=== PATIENT | male | born 1985 | race Caucasian/White ===

== ENCOUNTER 2017-08-26 16:39 | Emergency (ER) | payer SELFPAY ==
[2017-08-26] MEDS ORDERED: Ondansetron HCl/PF 4 MG/2 ML Vial ONE (17:46)
[2017-08-26] MEDS ORDERED: Ketorolac Tromethamine 30 MG/ML VIAL ONE (17:46)
== END 2017-08-26 18:50 | disposition home or self-care (01) ==
LOC: ERS 16:39
DX: B34.9 Viral infection, unspecified (principal); E86.0 Dehydration; F31.9 Bipolar disorder, unspecified; Z71.6 Tobacco abuse counseling; Z87.891 Personal history of nicotine dependence
CPT/HCPCS: 87804; 96361; 96374; 96375; 99406; J1885; J2405

== ENCOUNTER 2019-03-31 03:23 | Inpatient (IN) | payer OTHER, SELFPAY ==
[2019-03-31] MEDS ORDERED: Calcium Carbonate 500 MG ChewTAB PO PRN (04:15)
[2019-03-31] MEDS ORDERED: Ondansetron ODT 4 MG TAB PO PRN (04:15)
[2019-03-31] MEDS ORDERED: Ondansetron PF 4 MG/2 ML Vial IVP PRN (04:15)
[2019-03-31] MEDS ORDERED: Senokot S 8.6-50 MG TAB PO PRN (04:15)
[2019-03-31] MEDS: Sodium Chloride 0.9% 1,000 ML IV SCH ×5 (04:33→23:33)
[2019-03-31] MEDS: Pantoprazole 80 MG, Admixture Fee 1 EACH in Sodium Chloride 0.9% 100 ML IVP SCH ×2 (04:34→15:46)
[2019-03-31 05:23] LABS: Hemoglobin 9.5 g/dL (14.0-18.0)
[2019-03-31 08:33] LABS: #Monocytes 0.7 thou/uL (0.11-0.59); #Neutrophils 5.7 thou/uL (1.40-6.50); %Basophils 0.2 % (0.0-1.0); %Eosinophils 0.5 % (0.0-10.0); %Monocytes 7.8 % (0.0-10.0); %Neutrophils 67.5 % (42.0-75.0); Hemoglobin 9.1 g/dL (14.0-18.0); Mean Corpuscular HGB CONC 34.3 g/dL (32.0-36.0); Mean Corpuscular Hemoglobin 32.9 pg (27.0-31.0); Mean Platelet Volume 6.8 fL (7.4-10.4); Platelet Count 260 thou/uL (130-400); RBC Distribution Width 11.7 % (11.5-14.5); Red Blood Cell (RBC) Count 2.76 mill/uL (4.70-6.10); White Blood Cell (WBC) Count 8.4 thou/uL (4.8-10.8)
[2019-03-31 08:54] LABS: Iron 147 ug/dL (65-175); Iron Binding Capacity, Total 223 mcg/dL (261-462)
[2019-03-31 08:55] LABS: ALT (SGPT) 8 U/L (8-55); AST (SGOT) 10 U/L (5-34); Albumin 3.1 g/dL (3.5-5.0); Alkaline Phosphatase 34 U/L (40-150); Anion Gap 10 mmol/L (10-20); BUN (Urea Nitrogen) 20 mg/dL (8.9-20.6); Bilirubin, Total 0.5 mg/dL (0.2-1.2); Calc. Creatinine Clearance 162 mL/min (70-130); Calcium 7.7 mg/dL (7.8-10.44); Carbon Dioxide 23 mmol/L (22-29); Chloride 112 mmol/L (98-107); Estimated GFR-MDRD Greater than 90; Globulin 1.1 g/dL (2.4-3.5); Glucose 105 mg/dL (70-105); Iron 147 ug/dL (65-175); Iron Binding Capacity, Total 226 mcg/dL (261-462); Protein, Total 4.2 g/dL (6.0-8.3); Sodium 141 mmol/L (136-145)
--- NOTE | 2019-03-31 09:40 | PDOC.HOSPP ---
- Subjective Encounter Date: 03/31/19 Encounter Time: 09:15 Subjective: Patient examined, denied new complaints. Reports no vomiting since admitted, denied diarrhea. - Objective Vital Signs & Weight: Vital Signs (12 hours) Temp Pulse Resp BP BP BP BP 03/31/19 08:00 138/77 128/74 119/57 L 03/31/19 07:29 98.5 F 70 16 138/77 128/74 119/57 L 03/31/19 03:31 98.5 F 77 18 116/68 Pulse Ox 03/31/19 08:00 03/31/19 07:29 97 03/31/19 03:31 98 Weight Admit Weight 88.36 kg Weight 88.36 kg I&O: 03/30/19 03/31/19 04/01/19 06:59 06:59 06:59 Intake Total 174 Balance 174 Result Diagrams: 03/31/19 08:21 03/31/19 08:21 ROS - Review of Systems Gastrointestinal: reports: nausea, vomitting, abdominal pain, melena, hematochezia - Medication Medications: Active Medications Generic Name Dose Route Start Last Admin Trade Name Freq PRN Reason Stop Dose Admin Sodium Chloride 1,000 mls @ 150 mls/hr 03/31/19 04:15 03/31/19 04:33 Normal Saline 0.9% IV 1,000 mls .Q6H40M KALINA Administration Pantoprazole Sodium 80 mg/ 100 mls @ 10 mls/hr 03/31/19 04:30 03/31/19 04:34 Miscellaneous Medication 1 IVP 100 mls each/ Sodium Chloride INF KALINA Administration - Exam Eye: PERRL ENT: dry oral mucosa Neck: supple Heart: RRR Respiratory: CTAB Gastrointestinal: soft, normal bowel sounds, tender to palpation Gastrointestinal - other findings: diffuse tenderness Extremities: no edema Skin: normal turgor Neurological: CN's grossly intact Musculoskeletal: normal tone Psychiatric: normal affect, A&O x 3 Hosp A/P (1) Hematemesis Code(s): K92.0 - HEMATEMESIS Status: Acute (2) Hematochezia Code(s): K92.1 - MELENA Status: Acute (3) Melena Code(s): K92.1 - MELENA Status: Acute (4) Abdominal pain Code(s): R10.9 - UNSPECIFIED ABDOMINAL PAIN Status: Acute Qualifiers: Abdominal location: generalized Qualified Code(s): R10.84 - Generalized abdominal pain - Plan old records reviewed/req Consult for GI placed, Dr. Ann will take to OR for EGD Will recheck H&H Will continue to monitor Patient currently NPO
[2019-03-31 10:52] LABS: Hemoglobin 8.9 g/dL (14.0-18.0)
--- NOTE | 2019-03-31 11:10 | CON ---
DATE OF CONSULTATION: 03/31/2019 CHIEF COMPLAINT: Vomited blood. HISTORY OF PRESENT ILLNESS: Mr. 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 He suddenly developed profuse sweating and then vomited coffee-ground material multiple times. He had repeated episodes of coffee-ground emesis and then, red hematemesis following that. He then went to a [facility] and vomited red blood and clots filling up 2 emesis bags. He felt very weak and presyncopal at that point. An ambulance was called and he was taken to the [facility] ER. He was monitored in the emergency room for several hours after that and continued vomiting red blood and then some more coffee-grounds. He passed a couple of black tar like stools. He felt very weak. He was told he was dehydrated and was given some IV fluids and ultimately, discharged home with prescription for Zofran and Prilosec. He went back home and passed another black tarry stool. He vomited some more coffee-grounds and then went back to the [facility] Emergency Room. He sat in the emergency room waiting room for a couple of hours and then he felt very sick and weak and he then went on to the [facility] Emergency Room and from there, he was directly admitted to [facility]. He was given IV fluids and started on proton pump inhibitor drip. He has had some epigastric abdominal pain, sharp pain that does not radiate, on and off over the last couple of years. He did go to the emergency room once a couple of years ago with the pain and he was given a prescription for Nexium. He took the Nexium for a couple months and his pain went away. Since then, he has had some pain on and off around once per month, for which he takes Zantac as needed. He really has had no problems over the last couple of months until he started vomiting the blood yesterday. He has had no weight changes. No chest pain or shortness of breath. No fever or chills. He has had three black stools. His last melenic stool was last night around 10 p.m. PAST MEDICAL HISTORY: Otherwise negative. PAST SURGICAL HISTORY: Negative. FAMILY HISTORY: His father had bladder cancer. He had a great grandfather with colon cancer. SOCIAL HISTORY: He drank alcohol heavily from age 15 to age 25. He took multiple drugs during that time including IV drugs and methamphetamines and cocaine and pills including opioids and benzodiazepines. [facility] ultimately [facility] and since then, he has been off all alcohol and drugs. ALLERGIES: NO KNOWN DRUG ALLERGIES. MEDICATIONS: Prior to admission some occasional Zantac. REVIEW OF SYSTEMS: Negative x10 systems reviewed except as stated in the history of present illness. PHYSICAL EXAMINATION: VITAL SIGNS: Temperature 98.5, pulse 70, and blood pressure 119/57. GENERAL: He is in no acute distress. Alert and oriented x3. HEENT: Eyes have no scleral icterus. Oropharynx is clear without lesions. No cervical or supraclavicular lymphadenopathy. LUNGS: Clear to auscultation bilaterally. HEART: Regular rate and rhythm without murmur. ABDOMEN: Soft, nontender, and nondistended. Bowel sounds are present. EXTREMITIES: No lower extremity edema. LABORATORY DATA: White blood cell count 8.4, hemoglobin 9.1 at 8:20 this morning, MCV 96, and platelets 260. Creatinine 0.81. Iron 147, TIBC 223, percent saturation 66, and ferritin 43. Bilirubin 0.5, AST 10, ALT 8, alkaline phosphatase 34, and albumin 3.1. IMPRESSION: 1. Hematemesis. 2. Anemia of acute blood loss. 3. Periodic epigastric pain suggestive of peptic ulcer. 4. He has a past history of polysubstance abuse several years ago. He has been off alcohol and drugs for several years now. He has been donating plasma and presumably therefore has been tested for viral hepatitis and HIV. RECOMMENDATIONS: 1. Proton pump inhibitor drip. 2. EGD today. 3. I will check hepatitis serology and given the elevated iron saturation, I will also check an HIV gene for hemochromatosis screening. Job ID: [id number]
[2019-03-31 11:37] LABS: HBSAg Index 0.19 S/CO (0-0.99); Hep B Core Total Ab Non-Reactive (NonReactive); Hep B Core Total Index 0.03 S/CO (0-0.79); Hep B Surf Ag Non-Reactive S/CO (NonReactive); Hep C IgG Ab Non-Reactive (NonReactive); Hep C Index 0.11 S/CO (0-0.79)
[2019-03-31 12:45] LABS: HBSAB Concentration 6.69 mIU/mL; Hep B Surf AB NonReactive (NonReactive)
[2019-03-31] MEDS ORDERED: Promethazine HCl 25 MG/ML VIAL SLOW IVP PRN (15:06)
[2019-03-31] MEDS ORDERED: Promethazine HCl 25 MG/ML VIAL IM PRN (15:06)
[2019-03-31] MEDS ORDERED: Ondansetron HCl/PF 4 MG/2 ML Vial IVP PRN (15:06)
[2019-03-31] MEDS ORDERED: PROPOFOL 200 MG/20 ML VIAL ONE (16:11)
--- NOTE | 2019-03-31 17:00 | OP ---
DATE OF PROCEDURE: 03/31/2019 PROCEDURE PERFORMED: Esophagogastroduodenoscopy with control of hemorrhage and biopsy. PREOPERATIVE DIAGNOSES: Upper gastrointestinal bleed and anemia of acute blood loss. DESCRIPTION OF PROCEDURE: Informed consent was obtained from the patient. He was sedated with total intravenous anesthesia. The bite block was placed, and the endoscope was advanced easily to the second portion of the duodenum. The esophagus had mild grade A erosive esophagitis in the distal esophagus. The esophagus was otherwise normal. The stomach had erythematous antral gastritis. Biopsies were taken to rule out Helicobacter pylori. The remainder of the gastric mucosa including retroflexed views were normal. There was a 1 cm shallow ulcer on the inferior portion of the first portion of the duodenum with an adherent clot that appears to be the obvious bleeding source. Epinephrine 1:10,000 was injected in three quadrants, 1 mL per quadrant around the ulcer. The clot in the center was then dislodged with a Gold probe and the underlying vessel was cauterized with the 10-Telugu Gold probe with good hemostasis achieved. A hemoclip was placed over the ulcer base as well. There was a small red superficial red spot or AVM in the lateral wall of the duodenal bulb and this was also cauterized with the Gold probe. The second portion of the duodenum was normal. IMPRESSION: 1. A 1 cm shallow ulcer on the inferior part of the first portion of the duodenum with an adherent clot, which was the obvious bleeding source. This was injected with epinephrine and then cauterized with a 10-Telugu Gold probe with good hemostasis confirmed. A hemoclip was placed over the ulcer base as well. 2. A superficial red spot or arteriovenous malformation in the lateral wall of the first portion of the duodenum was also cauterized. 3. Grade A erosive esophagitis. 4. Erythematous antral gastritis. Biopsies were obtained to rule out Helicobacter pylori. RECOMMENDATIONS: 1. Await histopathology. 2. Continue proton pump inhibitor IV. 3. Advance diet as tolerated. We will start with full liquids today. 4. Follow trend of the hemoglobin. I think that he did have a significant bleed and he is still re-equilibrating his hemoglobin. I would not be surprised if his hemoglobin dropped by another couple of points tomorrow as he is rehydrated. Job ID: [id number]
[2019-03-31] MEDS: Acetaminophen 325 MG TAB PO PRN (18:44)
[2019-04-01 00:02] LABS: Hemoglobin 8.1 g/dL (14.0-18.0)
[2019-04-01] MEDS: Pantoprazole 80 MG, Admixture Fee 1 EACH in Sodium Chloride 0.9% 100 ML IVP SCH ×2 (01:38→12:19)
[2019-04-01 05:58] LABS: #Eosinphils 0.1 thou/uL (0.0-0.7); #Lymphocytes 2.1 thou/uL (1.20-3.40); #Monocytes 0.4 thou/uL (0.11-0.59); #Neutrophils 4.4 thou/uL (1.40-6.50); %Basophils 0.4 % (0.0-1.0); %Eosinophils 1.5 % (0.0-10.0); %Lymphocytes 29.6 % (21.0-51.0); %Neutrophils 62.5 % (42.0-75.0); Hemoglobin 8.3 g/dL (14.0-18.0); Mean Corpuscular HGB CONC 33.8 g/dL (32.0-36.0); Mean Corpuscular Hemoglobin 32.9 pg (27.0-31.0); Mean Corpuscular Volume 97.4 fL (78.0-98.0); Mean Platelet Volume 6.7 fL (7.4-10.4); Platelet Count 244 thou/uL (130-400); RBC Distribution Width 11.8 % (11.5-14.5); Red Blood Cell (RBC) Count 2.53 mill/uL (4.70-6.10)
[2019-04-01] MEDS: Sodium Chloride 0.9% 1,000 ML IV SCH ×3 (06:12→20:14)
[2019-04-01 06:27] LABS: Anion Gap 7 mmol/L (10-20); BUN (Urea Nitrogen) 9 mg/dL (8.9-20.6); Calc. Creatinine Clearance 125 mL/min (70-130); Calcium 7.4 mg/dL (7.8-10.44); Carbon Dioxide 22 mmol/L (22-29); Chloride 110 mmol/L (98-107); Estimated GFR-MDRD Greater than 90; Glucose 94 mg/dL (70-105); Potassium 3.7 mmol/L (3.5-5.1); Sodium 135 mmol/L (136-145)
[2019-04-01] MEDS: Acetaminophen 325 MG TAB PO PRN (11:10)
--- NOTE | 2019-04-01 13:44 | PRG ---
DATE OF SERVICE: 04/01/2019 SUBJECTIVE: Mr. Domingo passed some dark stool still last night. He has no abdominal pain. No further nausea. OBJECTIVE: VITAL SIGNS: Temperature 97.9, pulse 81, blood pressure 113/56. GENERAL: He is in no acute distress. Alert and oriented x3. LUNGS: Clear to auscultation bilaterally. HEART: Regular rate and rhythm without murmur. ABDOMEN: Soft, nontender, nondistended. Bowel sounds are present. EXTREMITIES: No lower extremity edema. LABORATORY DATA: Hemoglobin is 8.3. Viral hepatitis screen is negative. His ferritin is 43. IMPRESSION: 1. Acute gastrointestinal bleed secondary to duodenal ulcer, status post electrocautery and clipping of a vessel in the base of the ulcer. 2. Anemia secondary to acute blood loss. 3. Elevated iron saturation. RECOMMENDATIONS: 1. He should be able to stop the proton-pump inhibitor drip tomorrow and discharge home tomorrow. 2. He should take proton-pump inhibitor twice daily for 2 weeks and then back off to once daily. 3. Remained on the proton pump inhibitor indefinitely at this point. 4. Await histopathology to rule out Helicobacter pylori. 5. He is still passing some old blood, but he is not having any active bleeding. We still might see some equilibration of hemoglobin, but this appears to have stabilized. Anticipate that he will discharge home tomorrow. Job ID: [id number]
--- NOTE | 2019-04-01 15:07 | PDOC.HOSPP ---
- Subjective Encounter Date: 04/01/19 Encounter Time: 10:00 Subjective: Patient examined, reports passing dark blood tinged stool last night, denied any bright red blood, denies abdominal pain - Objective Vital Signs & Weight: Vital Signs (12 hours) Temp Pulse Resp BP BP Pulse Ox 04/01/19 13:12 97.9 F 81 16 113/56 L 99 04/01/19 07:37 97.6 F 75 16 121/69 98 04/01/19 04:41 98.7 F 80 18 109/61 97 Weight Admit Weight 88.36 kg Weight 62.959 kg I&O: 03/31/19 04/01/19 04/02/19 06:59 06:59 06:59 Intake Total 174 3820 Balance 174 3820 Result Diagrams: 04/01/19 05:48 04/01/19 05:48 ROS - Review of Systems Gastrointestinal: reports: melena - Medication Medications: Active Medications Generic Name Dose Route Start Last Admin Trade Name Freq PRN Reason Stop Dose Admin Acetaminophen 650 mg 03/31/19 04:15 04/01/19 11:10 Tylenol PO 650 mg Q4H PRN Administration Headache/Fever/Mild Pain (1-3) Sodium Chloride 1,000 mls @ 150 mls/hr 03/31/19 04:15 04/01/19 12:19 Normal Saline 0.9% IV 1,000 mls .Q6H40M KALINA Administration Pantoprazole Sodium 80 mg/ 100 mls @ 10 mls/hr 03/31/19 04:30 04/01/19 12:19 Miscellaneous Medication 1 IVP 100 mls each/ Sodium Chloride INF KALINA Administration - Exam Eye: PERRL, anicteric sclera ENT: moist mucosa Neck: supple, no JVD Heart: RRR Respiratory: CTAB Gastrointestinal: soft, non-tender, normal bowel sounds Extremities: no cyanosis Skin: normal turgor Neurological: CN's grossly intact Musculoskeletal: normal tone, normal strength Psychiatric: normal affect, A&O x 3 Hosp A/P (1) Hematemesis Code(s): K92.0 - HEMATEMESIS Status: Resolved (2) Hematochezia Code(s): K92.1 - MELENA Status: Acute (3) Abdominal pain Code(s): R10.9 - UNSPECIFIED ABDOMINAL PAIN Status: Resolved Qualifiers: Abdominal location: generalized Qualified Code(s): R10.84 - Generalized abdominal pain - Plan EDG yesterday, feels better today, passed dark stool last night Has tolerated increase to diet, had some cream of wheat this morning, will continue to increase as tolerated. Educated patient on keeping diet bland Will keep on IV protonix overnight Will recheck CBC in AM; serial H&Hs have been stable Will continue to monitor Plan to DC tomorrow if continues to improve, tolerate PO once cleared by GI
--- NOTE | 2019-04-01 18:43 | PDOC.EVN ---
Event Note - Event Note Event Note: KELVIN Rondon reports patient had a BM just now with melena and small amount of bright red blood. H&H ordered, and will check CBC in AM.
[2019-04-01 19:01] LABS: Hemoglobin 8.2 g/dL (14.0-18.0)
[2019-04-02] MEDS: Sodium Chloride 0.9% 1,000 ML IV SCH ×2 (01:11→06:40)
[2019-04-02 03:35] VITALS: BMI 17.8
--- NOTE | 2019-04-02 07:18 | HP ---
PRIMARY CARE PHYSICIAN: [facility]. CHIEF COMPLAINT: Coffee-ground emesis with dark stool of one day duration. HISTORY OF PRESENT ILLNESS: The patient is a 33-year-old male, who was transferred from [facility] emergency room with above complaints. Over the last 24 hours, the patient started having nausea with coffee-ground emesis along with several dark bowel movements. He deny any abdominal pain. He uses NSAIDs occasionally. He also had small amount of blood in his vomitus and stool. He denies current anticoagulation use. No recent travel, fever, chills, chest pain, lightheadedness, or syncope reported. In the [facility] emergency room, his initial vital signs showed blood pressure of 120/71, temperature 98.5, heart rate of 75 with respirations of 16, and O2 saturation 96% on room air. His H and H were around 11. Please note that he was evaluated at [facility] emergency room yesterday and was discharged home with outpatient GI followup. His H and H at [facility] was 11.7. PAST MEDICAL HISTORY: 1. Peptic ulcer disease. 2. GERD. PAST SURGICAL HISTORY: Reviewed with the patient and none. ALLERGIES: NO KNOWN DRUG ALLERGIES. CURRENT HOME MEDICATIONS: Reviewed with the patient and none. SOCIAL HISTORY: The patient currently lives at home. Denies any tobacco, alcohol, or drug use. FAMILY HISTORY: Negative for GI malignancy. REVIEW OF SYSTEMS: All other review of systems was reviewed and was found negative. PHYSICAL EXAMINATION: VITAL SIGNS: As discussed above. GENERAL: A 33-year-old male in no apparent distress. HEENT: Head, atraumatic and normocephalic. Sclerae anicteric. Moist mucous membranes. No oral lesion. NECK: Supple. No JVD. No carotid bruit. LUNGS: Clear to auscultation bilaterally. No wheezing, rales, or rhonchi. HEART: S1 and S2 present. Regular rate and rhythm. No rubs or gallops. ABDOMEN: Soft, nontender. Bowel sounds present. No rebound or guarding. No costovertebral angle tenderness. EXTREMITIES: No edema or calf tenderness. NEUROLOGIC: Grossly nonfocal. Moves all 4 extremities. PSYCHIATRY: Alert, awake, and oriented x3. SKIN: Warm and dry. LYMPH NODES: No palpable lymph nodes in the neck. PERIPHERAL VASCULAR: Radial pulses palpable bilaterally. MUSCULOSKELETAL: No joint swelling or tenderness. LABORATORY FINDINGS: PT/INR in normal range. Troponin was negative. CBC showed WBC 16.7 with hemoglobin 11, hematocrit 32.4, and platelet 338. Repeat hemoglobin at this facility is 9.5. Chemistry showed sodium 141, potassium 4.3, chloride 106, bicarb of 23, BUN 26, creatinine 1, and glucose of 128. DIAGNOSTIC STUDIES: EKG from [facility] showed sinus rhythm. IMPRESSION: 1. Gastrointestinal bleeding. 2. Acute blood loss anemia. 3. Gastroesophageal reflux disease with history of peptic ulcer disease. PLAN: The patient will be monitored on the telemetry unit. We will check orthostatic vitals daily. IV hydration. Protonix drip. Consult Gastroenterology. Repeat H and H later today. N.p.o. A.m. labs. Plan of care was discussed with the patient, and the patient stated understanding. Job ID: [id number]
[2019-04-02] MEDS: Pantoprazole 80 MG, Admixture Fee 1 EACH in Sodium Chloride 0.9% 100 ML IVP SCH ×2 (07:40→17:31)
--- NOTE | 2019-04-02 10:57 | PDOC.HOSPP ---
- Subjective Encounter Date: 04/02/19 Encounter Time: 10:56 Subjective: Patient lying in bed, he reports feeling mild epigastric pain better with meals , he also reports fatigue and generalized weakness. Hgb remains stable, but still reporting blood tinged stool. He denies chest pain, shortness of breath. - Objective Vital Signs & Weight: Vital Signs (12 hours) Temp Pulse Resp BP Pulse Ox 04/02/19 07:19 98.6 F 75 15 114/64 98 04/02/19 03:30 98.7 F 71 16 119/70 97 04/01/19 23:20 98.8 F 82 16 138/62 97 Weight Admit Weight 194 lb 12.8 oz Weight 138 lb 12.8 oz I&O: 04/01/19 04/02/19 04/03/19 06:59 06:59 06:59 Intake Total 3820 6050 Balance 3820 6050 Result Diagrams: 04/01/19 18:54 04/01/19 05:48 Radiology Reviewed by me: Yes ROS - Review of Systems Constitutional: reports: weakness. denies: fever, chills Eyes: denies: pain, vision change, conjunctivae inflammation ENT: denies: ear pain, nose congestion, mouth pain, throat pain Respiratory: denies: cough, shortness of breath, wheezing Cardiovascular: denies: chest pain, palpitations, light headedness Gastrointestinal: reports: nausea, abdominal pain, melena. denies: vomitting, diarrhea, constipation Musculoskeletal: denies: neck pain, shoulder pain, back pain Skin: denies: rash, lesions, bruising Neurological: denies: numbness, change in speech, confusion All other systems reviewed; all pertinent +/- noted in HPI/Subj - Medication Medications: Active Medications Generic Name Dose Route Start Last Admin Trade Name Freq PRN Reason Stop Dose Admin Acetaminophen 650 mg 03/31/19 04:15 04/01/19 11:10 Tylenol PO 650 mg Q4H PRN Administration Headache/Fever/Mild Pain (1-3) Sodium Chloride 1,000 mls @ 150 mls/hr 03/31/19 04:15 04/02/19 06:40 Normal Saline 0.9% IV 1,000 mls .Q6H40M KALINA Administration Pantoprazole Sodium 80 mg/ 100 mls @ 10 mls/hr 03/31/19 04:30 04/02/19 07:40 Miscellaneous Medication 1 IVP 100 mls each/ Sodium Chloride INF KALINA Administration - Exam NAD, awake alert Eye: PERRL, anicteric sclera ENT: normocephalic atraumatic, moist mucosa Neck: supple, symmetric, no JVD Heart: RRR, no murmur Respiratory: CTAB, no wheezes Gastrointestinal: soft, non-distended, normal bowel sounds Extremities: no cyanosis, no clubbing Skin: normal turgor Neurological: CN's grossly intact, normal sensation to touch, no focal deficits Musculoskeletal: normal tone, normal strength Psychiatric: normal affect, normal behavior, A&O x 3 Hosp A/P (1) Duodenal ulcer Status: Acute (2) Hematochezia Code(s): K92.1 - MELENA Status: Acute (3) Melena Code(s): K92.1 - MELENA Status: Acute (4) Abdominal pain Code(s): R10.9 - UNSPECIFIED ABDOMINAL PAIN Status: Resolved Qualifiers: Abdominal location: generalized Qualified Code(s): R10.84 - Generalized abdominal pain (5) Hematemesis Code(s): K92.0 - HEMATEMESIS Status: Resolved - Plan old records reviewed/req, plan discussed w/ family Await H pylori Recheck CBC in morning and transfuse as needed Continue protonix drip per Dr Seth Ann following along and we appreciate recommendations Hold discharge and transition to inpatient as patient will need to be monitored for at least one more day due to continued melena
--- NOTE | 2019-04-02 13:43 | PRG ---
DATE OF SERVICE: 04/02/2019 SUBJECTIVE: Mr. Domingo passed one black stool with red blood last night. He has no abdominal pain. No nausea or vomiting. PHYSICAL EXAMINATION: VITAL SIGNS: Temperature is 98.2, pulse 67, blood pressure 127/67. GENERAL: He is in no acute distress. Alert and oriented x3. LUNGS: Clear to auscultation bilaterally. HEART: Regular rate and rhythm without murmur. ABDOMEN: Soft, nontender, nondistended. Bowel sounds are present. EXTREMITIES: No lower extremity edema. LABORATORY DATA: His hemoglobin last night after the bleeding episode was 8.2, hemoglobin yesterday morning was 8.3. IMPRESSION: 1. Acute gastrointestinal bleed secondary to duodenal ulcer, status post electrocautery and clip. 2. Anemia of acute blood loss. 3. He did pass blood last night, which most likely is still passing old blood from the original bleed. I doubt he has had further bleeding since the procedure. RECOMMENDATIONS: 1. Recheck his hemoglobin in the morning. As long as it is stable, he can discharge home. 2. I would continue the proton pump inhibitor drip until then, and then, he can discharge home on proton pump inhibitor twice daily by mouth for 2 weeks and then cut back to once daily. 3. Await histopathology and treat H. pylori if positive. 4. Follow up in GI Clinic in a month. Job ID: [id number]
[2019-04-02] MEDS ORDERED: Polyethylene Glycol 3350 17 GM Packet PO PRN (23:43)
[2019-04-03] MEDS: Pantoprazole 80 MG, Admixture Fee 1 EACH in Sodium Chloride 0.9% 100 ML IVP SCH ×2 (03:45→16:49)
[2019-04-03 05:43] LABS: #Eosinphils 0.2 thou/uL (0.0-0.7); #Lymphocytes 2.2 thou/uL (1.20-3.40); #Monocytes 0.9 thou/uL (0.11-0.59); #Neutrophils 6.3 thou/uL (1.40-6.50); %Basophils 0.3 % (0.0-1.0); %Eosinophils 1.7 % (0.0-10.0); %Monocytes 9.4 % (0.0-10.0); %Neutrophils 65.6 % (42.0-75.0); Hemoglobin 7.9 g/dL (14.0-18.0); Mean Corpuscular Hemoglobin 33.1 pg (27.0-31.0); Mean Corpuscular Volume 94.4 fL (78.0-98.0); Mean Platelet Volume 6.9 fL (7.4-10.4); Platelet Count 316 thou/uL (130-400); RBC Distribution Width 11.9 % (11.5-14.5); Red Blood Cell (RBC) Count 2.39 mill/uL (4.70-6.10); White Blood Cell (WBC) Count 9.5 thou/uL (4.8-10.8)
[2019-04-03] MEDS: Acetaminophen 325 MG TAB PO PRN (09:05)
[2019-04-03] MEDS ORDERED: Magnesium Citrate 300 ML BOT PO SCH (10:30)
[2019-04-03 13:10] LABS: Hemoglobin 8.7 g/dL (14.0-18.0)
[2019-04-03] MEDS ORDERED: traMADol HCl 50 MG TAB PO PRN (15:09)
--- NOTE | 2019-04-03 15:20 | PDOC.HOSPP ---
- Subjective Encounter Date: 04/03/19 Encounter Time: 15:18 Subjective: Pt seen for followup re: H. pylori chronic active gastritis. c/o abdo pain, constipation. Vomited after drinking mag citrate. Feels weak. - Objective Vital Signs & Weight: Vital Signs (12 hours) Temp Pulse Resp BP BP BP Pulse Ox 04/03/19 11:15 97.8 F 77 20 137/82 98 04/03/19 08:50 73 L 04/03/19 08:00 98.1 F 73 18 129/73 123/77 131/80 99 04/03/19 04:00 98.2 F 76 16 131/75 96 Weight Admit Weight 194 lb 12.8 oz Weight 138 lb 12.8 oz I&O: 04/02/19 04/03/19 04/04/19 06:59 06:59 06:59 Intake Total 6050 480 Balance 6050 480 Result Diagrams: 04/03/19 12:59 04/01/19 05:48 Additional Labs: Labs and MARs reviewed by ROS - Review of Systems Cardiovascular: denies: chest pain, palpitations, orthopnea, paroxysmal noc. dyspnea, edema, light headedness Gastrointestinal: reports: nausea, vomitting, abdominal pain, constipation. denies: diarrhea, melena, hematochezia - Medication Medications: Active Medications Generic Name Dose Route Start Last Admin Trade Name Freq PRN Reason Stop Dose Admin Acetaminophen 650 mg 03/31/19 04:15 04/03/19 09:05 Tylenol PO 650 mg Q4H PRN Administration Headache/Fever/Mild Pain (1-3) Pantoprazole Sodium 80 mg/ 100 mls @ 10 mls/hr 03/31/19 04:30 04/03/19 03:45 Miscellaneous Medication 1 IVP 100 mls each/ Sodium Chloride INF KALINA Administration Ondansetron HCl 4 mg 03/31/19 04:15 04/03/19 12:03 Zofran IVP 4 mg Q6H PRN Administration Nausea/Vomiting Polyethylene Glycol 17 gm 04/02/19 23:43 04/02/19 23:52 Miralax PO 17 gm DAILYPRN PRN Administration Constipation Senna/Docusate Sodium 2 tab 03/31/19 04:15 04/02/19 23:52 Senokot S PO 2 tab BIDPRN PRN Administration Constipation - Exam NAD Eye: anicteric sclera ENT: normocephalic atraumatic Neck: supple Heart: RRR Respiratory: CTAB Gastrointestinal: soft, normal bowel sounds Gastrointestinal - other findings: Mild epigastric tenderness Extremities: no cyanosis Psychiatric: normal affect, normal behavior Hosp A/P (1) Duodenal ulcer Status: Acute (2) Chronic Helicobacter pylori gastritis Code(s): K29.50 - UNSPECIFIED CHRONIC GASTRITIS WITHOUT BLEEDING; B96.81 - HELICOBACTER PYLORI THE CAUSE OF DISEASES CLASSD ELSWHR Status: Acute - Plan plan discussed w/ family, out of bed/ambulate Continue Porotonix drip. Discussed with GI. At time of discharge start quadruple therepy: Pantoprazole 40 mg BID, doxycycline 100 mg BID, Peptobismol 524 mg QID (two of 262 mg tablets QID) and metronidazole 250 mg QID and BID iron. Hemoglobin stable, trended up to 8.5 on repeat check.
--- NOTE | 2019-04-03 15:46 | RAD ---
EXAM: XR Abdomen 2 View PROVIDED CLINICAL HISTORY: Abdominal pain COMPARISON: None FINDINGS: There is a metallic density overlying the right lower abdomen/right upper pelvis suggesting a metalli c foreign body, but the exact etiology is uncertain. Bowel gas pattern is nonspecific. No suspicious calcifications are appreciated, but the renal shadows are mostly obscured by bowel gas. Th e osseous structures have a normal appearance. IMPRESSION: 1. Metallic density overlying the right lower quadrant/right upper pelvis. Clinical correlation for m etallic foreign body in this region is recommended. 2. Nonspecific bowel gas pattern.
--- NOTE | 2019-04-03 19:17 | PRG ---
DATE OF SERVICE: 04/03/2019 SUBJECTIVE: Mr. Domingo has no abdominal pain. He has been tolerating a solid diet well. His last bowel movement was yesterday. He states that he got nervous because he did not have a bowel movement today after eating, and he usually has a bowel movement after meals. He asked for a laxative, and he took magnesium citrate and then vomited some magnesium citrate and vomited immediately after that. He has had no further vomiting. OBJECTIVE: ABDOMEN: Soft, nontender, and nondistended. Bowel sounds are present. EXTREMITIES: No lower extremity edema. IMPRESSION: 1. Anemia of acute blood loss. His hemoglobin has improved today to 8.7. 2. Gastrointestinal bleed secondary to duodenal ulcer, resolved. He is still passing some old blood from his colon. There are no signs of ongoing active bleeding at this point. His hemoglobin is stable. 3. Helicobacter pylori infection. He should be treated with quadruple therapy for 14 days. He can be discharged on bismuth 524 mg 4 times daily, doxycycline 100 mg twice daily, pantoprazole 40 mg twice daily (or other PPI), and metronidazole 250 mg 4 times daily. They should all be given for 14 days. 4. The patient can be discharged home this evening or tomorrow morning. I will sign off. Please call if GI can be of assistance. Job ID: [id number] MTDD
--- NOTE | 2019-04-03 19:31 | PDOC.EVN ---
Event Note - Event Note Event Note: Reassessed patient. Updated him re: abdo x-ray result. Discussed discharge plan. Pt reports he is still constipated, worried about going home tonight. Will make arrangements to be picked up tomorrow. Pt to be discharged tomorrow.
[2019-04-03] MEDS: traMADol HCl 50 MG TAB PO PRN (20:48)
[2019-04-04 05:04] LABS: #Eosinphils 0.2 thou/uL (0.0-0.7); #Lymphocytes 1.9 thou/uL (1.20-3.40); #Neutrophils 7.7 thou/uL (1.40-6.50); %Basophils 0.4 % (0.0-1.0); %Eosinophils 1.5 % (0.0-10.0); %Lymphocytes 17.8 % (21.0-51.0); %Monocytes 8.9 % (0.0-10.0); %Neutrophils 71.3 % (42.0-75.0); Mean Corpuscular HGB CONC 34.5 g/dL (32.0-36.0); Mean Corpuscular Volume 95.6 fL (78.0-98.0); Mean Platelet Volume 6.7 fL (7.4-10.4); Platelet Count 363 thou/uL (130-400); RBC Distribution Width 12.3 % (11.5-14.5); Red Blood Cell (RBC) Count 2.42 mill/uL (4.70-6.10); White Blood Cell (WBC) Count 10.8 thou/uL (4.8-10.8)
[2019-04-04] MEDS: traMADol HCl 50 MG TAB PO PRN (05:50)
[2019-04-04 15:31] VITALS: BP 135/78; TEMP 98.1
--- NOTE | 2019-04-04 17:39 | DIS ---
DATE OF ADMISSION: 03/31/2019 DATE OF DISCHARGE: 04/04/2019 DISCHARGE DISPOSITION: Home. PRIMARY DISCHARGE DIAGNOSES: Acute blood loss anemia with GI bleed, 1 cm duodenal ulcer, H pylori, and chronic active gastritis. PROCEDURES DONE DURING HOSPITALIZATION: The patient has had upper endoscopy done by Dr. Bhaskar Ann on 03/31/2019, which showed 1 cm shallow ulcer on the inferior part of the first portion of duodenum with an adherent clot, which was the obvious source of bleeding. This was injected with epinephrine and then cauterized with a 10-Honduran gold probe with good hemostasis. A hemoclip was also placed over the ulcer base. 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 Grade A erosive esophagitis was seen. Erythematous antral gastritis, which was biopsied, histopathology of gastric endoscopic biopsy showed H pylori, chronic active gastritis. Discharge H and H of 8 and 23, MCV is 95, platelet count 363. Albumin is 3.1. Serum iron 147, TIBC 223, percent saturation 66, ferritin is 43. Hepatitis profile was negative. Hemochromatosis genetic screen showed no mutation. INPATIENT CONSULT: Dr. Bhaskar Ann for Gastroenterology. DISCHARGE MEDICATIONS: Bismuth 524 mg p.o. 4 times daily for 2 weeks, doxycycline 100 mg p.o. twice daily for 2 weeks, ferrous sulfate 325 mg p.o. daily, Flagyl 250 mg p.o. 4 times daily for 2 weeks, and Protonix 40 mg p.o. twice daily for 2 weeks. ALLERGIES: NO KNOWN DRUG ALLERGIES. DISCHARGE PLAN: The patient to follow up with primary care physician in [address] Bhaskar Ann as advised BRIEF COURSE DURING HOSPITALIZATION: The patient initially got admitted on the with complaints of coffee-ground emesis. His initial hemoglobin was 11. He has had upper endoscopy done by Dr. Bhaskar Ann. This showed duodenal ulcer as described above, which was cauterized. The patient has had slow and gentle recovery. His histopathology from gastric biopsy came back positive for H pylori. At the time of discharge, he was placed on quadruple therapy for 2 weeks. He has had slow and gentle recovery. He is tolerating oral solid diet prior to discharge. His H and H have remained stable around 8 and 24. He needs to follow up with Dr. Bhaskar Ann as advised and primary care physician in 1 week. Please note, I have seen and examined the patient on the day of discharge. Job ID: [id number]
== END 2019-04-04 20:41 | disposition home or self-care (01) | DRG 378 ==
LOC: OBSVTOIN 03:23 → 2SW 03:23 → INTOOBSV 03:23 → SURG B 04-02 22:05
PROVIDERS: ADMIT Internal Medicine; ATTEND Internal Medicine
PROC: 0W3P8ZZ Control Bleeding in Gastrointestinal Tract, Via Natural or Artificial Opening Endoscopic (ICD-10-PCS; principal; 2019-03-31)
PROC: 0DB78ZX Excision of Stomach, Pylorus, Via Natural or Artificial Opening Endoscopic, Diagnostic (ICD-10-PCS; 2019-03-31)
DX: K26.4 Chronic or unspecified duodenal ulcer with hemorrhage (principal); D62 Acute posthemorrhagic anemia; K22.10 Ulcer of esophagus without bleeding; K21.9 Gastro-esophageal reflux disease without esophagitis; F19.10 Other psychoactive substance abuse, uncomplicated; K29.50 Unspecified chronic gastritis without bleeding; B96.81 Helicobacter pylori [H. pylori] as the cause of diseases classified elsewhere; Z87.11 Personal history of peptic ulcer disease; Q27.33 Arteriovenous malformation of digestive system vessel
CPT/HCPCS: 36415; 74019; 80048; 80053; 81256; 82728; 83540; 83550; 85014; 85018; 85025; 86704; 86706; 86709; 86803; 86850; 86900; 86901; 87340; 88305; 88312; C9113; J2405; J2704; J3490; Q0162

== ENCOUNTER 2021-04-21 10:06 | Emergency (ER) | payer OTHER ==
[2021-04-21 21:48] LABS: SARS-CoV-2 PCR by NAA Not Detected (NotDetected)
== END 2021-04-21 12:34 | disposition home or self-care (01) ==
LOC: ERS 10:06
DX: J00 Acute nasopharyngitis [common cold] (principal); Z20.822 Contact with and (suspected) exposure to COVID-19; Z87.891 Personal history of nicotine dependence
CPT/HCPCS: 99283; U0003; U0005